=== PATIENT | male | born 1960 | race African-American/Black ===

== ENCOUNTER 2016-12-27 12:36 | Emergency (ER) | payer OTHER ==
[~2016-12-27] VITALS: Ht 177.8 cm; Wt 74.8 kg
--- NOTE | ~2016-12-27 | CR142 ---
[facility] A Service of [facility] RADIOLOGY TEXT RESULTS PATIENT: MARY SAVAGE LOCATION: [facility] : 62 UNIT #: [id number] AGE: [address]: Marni Spears APRN SEX: M ORDER DR: [id number] [facility] [address] [place], [place] [address] [id number] MR#: [id number] Acc #: [id number] NAME: MARY SAVAGE : 1960 SEX: M STUDY DATE/TIME: 12/27/2016 13:13 UNIT: TX ROOM: STUDY DESCRIPTION: CR Hand Min 3 Views Rt Attending Physician: Marni Spears A.P.R.N. Ordering Physician: Ed Doctor [id number] [facility] Primary Care Physician: Primary Care Physician No MEDICAL IMAGING REPORT This report is preliminary unless electronic signature is present EXAM 3 views of the right hand, 12/27/2016 HISTORY Right hand wrist pain for 1 day. Fell 1 week ago. COMPARISON None FINDINGS No acute right hand fracture is seen and there is no evidence of joint dislocation. There is prominent spurring of the dorsum of the wrist at the carpometacarpal junction. Mild osteoarthritic changes demonstrated within the metacarpophalangeal joints and interphalangeal joints. Fairly advanced degenerative changes are demonstrated at the radiocarpal joint. Chronic-appearing corticated calcifications are seen at the medial and lateral aspects of the wrist. IMPRESSION 1. Right wrist soft tissue swelling without evidence of acute osseous abnormality. 2. Corticated calcifications in the medial and lateral aspects of the wrist are felt to be chronic. 3. Osteoarthritic change of the right hand and wrist, greatest at the radiocarpal joint. Dictated by... Xochitl Carranza M.D. THIS IS AN ELECTRONICALLY VERIFIED REPORT Xochitl Carranza M.D. at 12/28/2016 9:40 AM BHAVIN/catrachita [facility] A Service of [facility] RADIOLOGY TEXT RESULTS PATIENT: MARY SAVAGE LOCATION: [facility] : 62 UNIT #: [id number] AGE: [address]: Marni Spears APRN SEX: M ORDER DR: TD: 12/27/2016 14:41 JOB #: [id number] MEDICAL IMAGING REPORT Page 1 of 1 COPY
--- NOTE | ~2016-12-27 | CR286 ---
[facility] A Service of [facility] RADIOLOGY TEXT RESULTS PATIENT: MARY SAVAGE LOCATION: [facility] : 62 UNIT #: [id number] AGE: [address]: Marni Spears APRN SEX: M ORDER DR: [id number] [facility] [address] [place], [place] [address] [id number] E MR#: [id number] Acc #: [id number] NAME: MARY SAVAGE : 1960 SEX: M STUDY DATE/TIME: 12/27/2016 13:13 UNIT: CFTX ROOM: STUDY DESCRIPTION: CR Wrist W Navicular Min 3 Rt Attending Physician: Marni Spears A.P.R.N. Ordering Physician: Ed Last Owens M.D. Primary Care Physician: No Primary Care Physician MEDICAL IMAGING REPORT This report is preliminary unless electronic signature is present EXAM Four views of the right wrist. Date: 12/27/2016 HISTORY Right wrist pain and swelling for 1 day. Fell 1 week ago. COMPARISON None. FINDINGS No acute fracture, joint dislocation is seen. Advanced degenerative narrowing of the radiocarpal joint with loss of normal joint space and articular sclerosis. There is marginal osteophyte formation of the distal scaphoid bone with a well-corticated 4 mm calcification adjacent to the scaphoid. A well-corticated chronic-appearing calcification adjacent to the ulnar styloid measures 6 mm. Subchondral cystic changes are demonstrated within the radial styloid, the lateral aspect of the lunate bone. Mild osteoarthritic changes are also demonstrated within the intercarpal and carpometacarpal junctions, greatest at the first carpometacarpal joint. There is spurring at the dorsum of the wrist at the carpometacarpal junction. Right wrist soft tissue swelling is demonstrated anteriorly and posteriorly. IMPRESSION 1. Right wrist soft tissue swelling. 2. No acute osseous abnormalities are identified. 3. Moderately advanced osteoarthritic changes particularly of the radiocarpal joint and the dorsum of the carpometacarpal junction. 4. Well-corticated calcifications at the medial and lateral aspects of the wrist are thought to be old. [facility]. [facility] A Service of [facility] RADIOLOGY TEXT RESULTS PATIENT: MARY SAVAGE LOCATION: [facility] : 62 UNIT #: [id number] AGE: [address]: Marni Spears APRN SEX: M ORDER DR: Dictated by... Xochitl Carranza M.D. THIS IS AN ELECTRONICALLY VERIFIED REPORT Xochitl Carranza M.D. at 12/28/2016 9:40 AM BHAVIN/rad TD: 12/27/2016 14:39 JOB #: [id number] MEDICAL IMAGING REPORT Page 1 of 1 COPY
[~2016-12-27 12:36] MED LIST: LISINOPRIL20 MG PO
== END 2016-12-27 15:08 | disposition home or self-care (01) ==
LOC: CFTX 12:36 → CED 12:36 → CFTX 13:07
DX: S63.501A Unspecified sprain of right wrist, initial encounter (principal); D64.9 Anemia, unspecified; I10 Essential (primary) hypertension; W19.XXXA Unspecified fall, initial encounter
CPT/HCPCS: 29125; 73110; 73130; 99283